=== PATIENT | female | born 1980 | race Caucasian/White ===

== ENCOUNTER 2016-06-14 12:32 | Observation (INO) | payer MEDICAID ==
[2016-06-14] MEDS ORDERED: PRENA1 CHEW TA1.4 M1 PO (13:27)
[2016-06-14] MEDS ORDERED: VITAMIN C250 MG/TAB PO (13:28)
== END 2016-06-14 17:15 ==
LOC: LDR 12:32
PROVIDERS: ADMIT Advanced Practice Midwife
DX: O47.03 False labor before 37 completed weeks of gestation, third trimester (principal); Z3A.36 36 weeks gestation of pregnancy; Z79.899 Other long term (current) drug therapy

== ENCOUNTER 2016-06-19 14:47 | Observation (INO) | payer MEDICAID ==
[~2016-06-19 14:47] MED LIST: PRENA1 CHEW TA1.4 M1 PO; VITAMIN C250 MG/TAB PO
== END 2016-06-19 16:50 ==
LOC: LDR 14:47
PROVIDERS: ADMIT Advanced Practice Midwife
DX: O47.1 False labor at or after 37 completed weeks of gestation (principal); Z3A.37 37 weeks gestation of pregnancy

== ENCOUNTER 2016-07-04 14:55 | Inpatient (IN) | payer MEDICAID ==
[2016-07-04] MEDS ORDERED: VITAMIN B-12250 MC2 PO (15:35)
[2016-07-04] MEDS ORDERED: VITAMIN D31000 UNI3 PO ×2 (15:35→15:44)
[2016-07-04] MEDS ORDERED: MAGNESIUM OXID400 M1 PO (15:35)
[2016-07-04] MEDS ORDERED: BIOTIN1 M2 PO ×2 (15:37→16:00)
[2016-07-04] MEDS ORDERED: VITAMIN D1000 UNI3 PO (15:53)
[2016-07-04] MEDS ORDERED: FOLIC ACID0.8 M2 PO (15:55)
[2016-07-04] MEDS ORDERED: FOLIC ACID0.8 M1 PO (15:57)
[2016-07-06] MEDS ORDERED: IBUPROFEN800 M1 PO (09:22)
[2016-07-06] MEDS ORDERED: TYLENOL325 M2 PO (09:23)
== END 2016-07-06 13:00 | DRG 775 ==
LOC: LDR 14:55 → OBGF 07-05 00:41
PROVIDERS: ADMIT Advanced Practice Midwife
PROC: 10E0XZZ Delivery of Products of Conception, External Approach (ICD-10-PCS; principal; 2016-07-04)
PROC: 10907ZC Drainage of Amniotic Fluid, Therapeutic from Products of Conception, Via Natural or Artificial Opening (ICD-10-PCS; 2016-07-04)
DX: O69.81X0 Labor and delivery complicated by cord around neck, without compression, not applicable or unspecified (principal); Z37.0 Single live birth; Z3A.39 39 weeks gestation of pregnancy
CPT/HCPCS: J2590